=== PATIENT | male | born 1950 | race Two or more races ===

== ENCOUNTER → 2018-04-04 | Outpatient (CLI) | payer OTHER ==
[~2018-04-04] VITALS: Ht 170.2 cm; Wt 90.7 kg
[~2018-04-04] MED LIST: ADENOSINE 76 MG in GIVE UN-DILUTED 0 ML IV ONE; ADENOSINE 90 MG/30 ML INJ IV ONE
== END | disposition home or self-care (01) ==
LOC: Rad HDHVI 07:59
PROVIDERS: ATTEND Internal Medicine Cardiovascular Disease
DX: I20.0 Unstable angina (principal); R06.02 Shortness of breath; E78.00 Pure hypercholesterolemia, unspecified; E11.9 Type 2 diabetes mellitus without complications
CPT/HCPCS: 78452; 93005; 96374; 96375; A9500; J0153